=== PATIENT | female | born 1930 | race Caucasian/White ===

== ENCOUNTER 2016-09-07 01:00 | Inpatient (IN) | payer MEDICARE ==
[2016-09-07] VITALS (10 sets, daily range): BP systolic 113–166; BP diastolic 65–98; PULSE 85–112; RESP 16–26; O2SAT 96–98
[~2016-09-07] VITALS: Ht 157.5 cm; Wt 51.6 kg
[~2016-09-07 01:00] MED LIST: ACET-171 PO; ANAG0.5C2 PO; BIOT1CAP3 PO; BRIN8DRO OD; BUTA1CAP16 PO; CALC-140 PO; CARV6.252 AD; CHOL100043 PO; FUR20 PO; LORA0.5T PO; LOSA25TA21 PO; OXYC1TAB24 PO; PAIN TOPICAL; WARF1TAB6 PO
--- NOTE | 2016-09-07 01:19 | ED.REPORT ---
HPI-Allergic Reaction Date of Service Sep 07, 2016 ED Provider: Nursing Notes Stated Complaint: DYSURIA Chief Complaint: Female Abdominal Pain Nursing Notes Reviewed: Yes Allergies: Coded Allergies: Penicillins (Verified Allergy, Unknown, UNKNOWN, 09/07/16) erythromycin base (Verified Allergy, Unknown, UNKNOWN, 09/07/16) ibuprofen (Verified Allergy, Unknown, UNKNOWN, 09/07/16) timolol (Verified Allergy, Unknown, UNKNOWN, 09/07/16) Scheduled Anagrelide (Anagrelide) 0.5 Mg Capsule 1 MG PO BID Biotin (Biotin) 1 Mg Capsule 1 MG PO DAILY Brinzolamide/Brimonid Tart (Simbrinza 1%-0.2% Eye Drops) 8 Ml Drops.susp 2 GTT OD BID Calcium Carbonate/Vitamin D3 (Calcium + Vitamin D Tablet) 1 Each Tablet 1 EACH PO DAILY Carvedilol (Carvedilol) 6.25 Mg Tablet 6.25 MG AD BID Cholecalciferol (Vitamin D3) (Vitamin D) 1,000 Unit Tablet 1,000 UNIT PO DAILY Furosemide (Furosemide) 20 Mg Tab 20 MG PO DAILY Losartan Potassium (Losartan Potassium) 25 Mg Tablet 25 MG PO DAILY Warfarin Sodium (Warfarin Sodium) 1 Mg Tablet 1-5 MG PO DIRECTED Scheduled PRN ([pain ointment]) 1 GM TOPICAL QID PRN PRN For Pain Acetaminophen (Acetaminophen) 500 Mg Tablet 500 MG PO TID PRN PRN For Pain Butalbital/Aspirin/Caff 50-325-40 mg (Fiorinal 50-325-40 mg) 1 Each Capsule 1-2 CAPSULE PO Q6H PRN PRN MIGRAINE Lorazepam (Lorazepam) 0.5 Mg Tablet 0.5 MG PO HS PRN PRN For Insomnia oxyCODONE-Acetaminophen 5-325 mg (oxyCODONE-Acetaminophen 5-325 mg) 1 Each Tablet 1 TAB PO Q6H PRN PRN For Pain General Time Seen by MD: 02:24 Past Medical History Smoking History Former Smoker Physical Exam Initial Vital Signs Vital Signs (First) Date Time Temp Pulse Resp B/P Pulse Ox O2 Delivery O2 Flow Rate FiO2 09/07/16 01:03 37.6 110 26 166/98 96 Room Air Interpretation & Diagnostics Lab Results Interpretation Result Diagram: 09/07/16 0120 09/07/16 0120 Test 09/07/16 01:20 09/07/16 01:31 White Blood Count 10.6th/mm3 (3.8-10.1) Red Blood Count 3.28mil/mm3 (3.90-5.20) Hemoglobin 11.6g/dL (12.0-15.6) Hematocrit 35.1% (35.0-46.0) Mean Corpuscular Volume 107.0fL (81-100) Mean Corpuscular Hemoglobin 35.4pg (27.0-35.0) Mean Corpuscular Hemoglobin Concent 33.0% (32.0-37.0) Red Cell Distribution Width 14.0% (12.3-15.4) Platelet Count 587bil/L (150-400) Neutrophils (%) (Auto) 77.7% (40-74) Lymphocytes (%) (Auto) 10.7% (14-46) Monocytes (%) (Auto) 6.7% (4-12) Eosinophils (%) (Auto) 3.7% (0-5) Basophils (%) (Auto) 0.7% (0-3) Sodium Level 141mEq/L (134-144) Potassium Level 4.5mEq/L (3.5-5.2) Chloride Level 100mEq/L (97-108) Carbon Dioxide Level 26mmol/L (18-29) Blood Urea Nitrogen 28mg/dL (8-27) Creatinine 1.37mg/dL (0.57-1.00) Estimat Glomerular Filtration Rate 52mL/min (>59) Glucose Level 82mg/dL (60-99) Calcium Level 9.6mg/dL (8.5-10.1) Magnesium Level 2.1mg/dL (1.6-2.6) Total Bilirubin 0.4mg/dL (0.0-1.2) Aspartate Amino Transf (AST/SGOT) 30U/L (0-50) Alanine Aminotransferase (ALT/SGPT) 17U/L (0-32) Alkaline Phosphatase 103U/L (25-165) Total Protein 7.1g/dL (6.4-8.4) Albumin 4.4g/dL (3.4-5.0) Lipase 70U/L (13-60) Hold Urine Received (Received) Discharge & Departure Referrals: Fani Johnson MD (PCP) Ugo Morfin MD Sep 07, 2016 01:19
[2016-09-07 01:31] LABS: BASOPHILS % (AUTO) 0.7 % (0-3); EOSINOPHILS % (AUTO) 3.7 % (0-5); MONOCYTES % (AUTO) 6.7 % (4-12); Mean Corpuscular Hemoglobin 35.4 pg (27.0-35.0); NEUTROPHILS % (AUTO) 77.7 % (40-74)
[2016-09-07 01:44] LABS: Platelet Count 587 bil/L (150-400)
[2016-09-07 02:10] LABS: Magnesium 2.1 mg/dL (1.6-2.6)
--- NOTE | 2016-09-07 03:02 | ED.REPORT ---
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 Her symptoms have improved over the last few days but have persisted. She took Motrin with little relief. Associated symptoms include subjective fever of 99F, nausea, constipation, abdominal discomfort and flank pain. Patient also reports experiencing bilateral foot pain similar to her osteoarthritis pain. She denies any episodes of emesis. Nursing Notes Stated Complaint: DYSURIA Chief Complaint: Female Abdominal Pain Nursing Notes Reviewed: Yes Allergies: Coded Allergies: Penicillins (Verified Allergy, Unknown, UNKNOWN, 09/07/16) erythromycin base (Verified Allergy, Unknown, UNKNOWN, 09/07/16) ibuprofen (Verified Allergy, Unknown, UNKNOWN, 09/07/16) timolol (Verified Allergy, Unknown, UNKNOWN, 09/07/16) Scheduled Anagrelide (Anagrelide) 0.5 Mg Capsule 1 MG PO BID Biotin (Biotin) 1 Mg Capsule 1 MG PO DAILY Brinzolamide/Brimonid Tart (Simbrinza 1%-0.2% Eye Drops) 8 Ml Drops.susp 2 GTT OD BID Calcium Carbonate/Vitamin D3 (Calcium + Vitamin D Tablet) 1 Each Tablet 1 EACH PO DAILY Carvedilol (Carvedilol) 6.25 Mg Tablet 6.25 MG AD BID Cholecalciferol (Vitamin D3) (Vitamin D) 1,000 Unit Tablet 1,000 UNIT PO DAILY Furosemide (Furosemide) 20 Mg Tab 20 MG PO DAILY Losartan Potassium (Losartan Potassium) 25 Mg Tablet 25 MG PO DAILY Warfarin Sodium (Warfarin Sodium) 1 Mg Tablet 1-5 MG PO DIRECTED Scheduled PRN ([pain ointment]) 1 GM TOPICAL QID PRN PRN For Pain Acetaminophen (Acetaminophen) 500 Mg Tablet 500 MG PO TID PRN PRN For Pain Butalbital/Aspirin/Caff 50-325-40 mg (Fiorinal 50-325-40 mg) 1 Each Capsule 1-2 CAPSULE PO Q6H PRN PRN MIGRAINE Lorazepam (Lorazepam) 0.5 Mg Tablet 0.5 MG PO HS PRN PRN For Insomnia oxyCODONE-Acetaminophen 5-325 mg (oxyCODONE-Acetaminophen 5-325 mg) 1 Each Tablet 1 TAB PO Q6H PRN PRN For Pain General Time Seen by MD: 02:24 Chief Complaint Dysuria Hx Obtained From: Patient Arrived By: Ambulance Sudden in Onset?: No Symptom Duration: Since onset Location: : Flank left: Flank right Quality: Painful Radiation: Does not radiate Severity: Current: No pain currently Severity: Maximum: Mild Associated with: Reports: Fever (subjective), Nausea, UTI symptoms... (Dysuria) , Denies: Vomiting Pertinent Negative: Pt denies other symptoms Recent Healthcare: No recent doctor visit, No recent hospitalization Past Medical History Past Medical History Osteoarthritis Central thrombocytosis Atrial fibrillation CHF Past Surgical History None reported Smoking History Former Smoker Social History Other Social History: Good social support, Local resident Ambulatory Status Independent Review of Systems Constitutional: Reports: Fever (Subjective 99F) GI: Reports: Abdominal pain, Constipation, Nausea, Denies: Vomiting Female: Reports: Dysuria, Flank pain Complete sys rev & neg: except as marked. Physical Exam Initial Vital Signs Vital Signs (First) Date Time Temp Pulse Resp B/P Pulse Ox O2 Delivery O2 Flow Rate FiO2 09/07/16 01:03 37.6 110 26 166/98 96 Room Air 09/07/16 03:14 2 Initial VS: Reviewed Head / Eyes: Atraumatic, Normocephalic, PERRL Neck: Supple, Non-tender, Full range of motion Abdomen / GI: No rebound Extremities: Vascular intact, Neuro intact, No swelling, No tenderness Skin: Warm, Dry, No cyanosis Neurologic: Alert, Oriented, Nonfocal Psychiatric: Mood/affect normal, Behavior normal, Normal thought content Female Genitourinary: Exam deferred General/Constitutional: Awake, Alert, No acute distress Respiratory / Chest: Atraumatic, Breath sounds NL, Breath sounds = bilat, No respiratory distress Cardiovascular: Heart rate NL, Regular rhythm, Heart sounds NL Abdomen: Atraumatic, Soft Tenderness/Guarding/Rebound: Positive: Tender RLQ..., Tender RUQ... Interpretation & Diagnostics Lab Results Interpretation Result Diagram: 09/07/16 0120 09/07/16 0120 Test 09/07/16 01:20 09/07/16 01:31 09/07/16 05:22 White Blood Count 10.6th/mm3 (3.8-10.1) Red Blood Count 3.28mil/mm3 (3.90-5.20) Hemoglobin 11.6g/dL (12.0-15.6) Hematocrit 35.1% (35.0-46.0) Mean Corpuscular Volume 107.0fL (81-100) Mean Corpuscular Hemoglobin 35.4pg (27.0-35.0) Mean Corpuscular Hemoglobin Concent 33.0% (32.0-37.0) Red Cell Distribution Width 14.0% (12.3-15.4) Platelet Count 587bil/L (150-400) Neutrophils (%) (Auto) 77.7% (40-74) Lymphocytes (%) (Auto) 10.7% (14-46) Monocytes (%) (Auto) 6.7% (4-12) Eosinophils (%) (Auto) 3.7% (0-5) Basophils (%) (Auto) 0.7% (0-3) Sodium Level 141mEq/L (134-144) Potassium Level 4.5mEq/L (3.5-5.2) Chloride Level 100mEq/L (97-108) Carbon Dioxide Level 26mmol/L (18-29) Blood Urea Nitrogen 28mg/dL (8-27) Creatinine 1.37mg/dL (0.57-1.00) Estimat Glomerular Filtration Rate 52mL/min (>59) Glucose Level 82mg/dL (60-99) Calcium Level 9.6mg/dL (8.5-10.1) Magnesium Level 2.1mg/dL (1.6-2.6) Total Bilirubin 0.4mg/dL (0.0-1.2) Aspartate Amino Transf (AST/SGOT) 30U/L (0-50) Alanine Aminotransferase (ALT/SGPT) 17U/L (0-32) Alkaline Phosphatase 103U/L (25-165) Total Protein 7.1g/dL (6.4-8.4) Albumin 4.4g/dL (3.4-5.0) Lipase 70U/L (13-60) Urine Color Straw (YELLOW) Urine Appearance Hazy (CLEAR,HAZY) Urine pH 8.0 (5.0-8.0) Urine Specific [place] 1.010 (1.003-1.035) Urine Protein 30mg/dL (NEG,TRACE) Urine Glucose (UA) Negativemg/dL (NEGATIVE) Urine Ketones Negativemg/dL (NEGATIVE) Urine Occult Blood Trace (NEGATIVE) Urine Nitrite Negative (NEGATIVE) Urine Bilirubin Negative (NEGATIVE) Urine Urobilinogen Normalmg/dL (NORMAL) Urine Leukocyte Esterase Small (NEGATIVE) Urine RBC 3-10/hpf (0-2) Urine WBC >50/hpf (0-5) Urine Epithelial Cells Occasional/hpf (NONE-MOD) Urine Crystals None seen (NONE SEEN) Urine Bacteria Few/hpf (NONE-FEW) Urine Hyaline Casts None/lpf (NONE) Urine Granular Casts None seen (NONE SEEN) Urine Waxy Casts None seen (NONE SEEN) Urine Red Blood Cell Casts None seen (NONE SEEN) Urine White Blood Cell Casts None seen (NONE SEEN) Urine Mucus None seen (None Seen) Urine Trichomonas None seen (NONE SEEN) Urine Yeast Nn (NONE SEEN) Urine Culture Reflexed Indicated Hold Urine Received (Received) Lactic Acid Level 0.6mmol/L (0.4-2.0) Lab values outside NL range: no clinical significance. Lab Results Interpretation: Greater than 50 white cells per high-power field, a urine culture pending. Re-Eval/Medical Decision Med Decision/Clinical Course 86-year-old female who has symptoms of urinary tract infection. She has great through than 50 white cells per high-power field, culture pending. Her white count is mildly elevated and there is no evidence of sepsis. She lives alone with some walk-in help but feels that she would be unable to care for self this time. She was given hydration and IV Rocephin and will be admitted to the hospitalist service. Re-Evaluation/Progress : Time of Eval: 05:32 Patient Status: Condition improved Re-Evaluation/Progress Note: Pain has improved but fatigue is still present. She is given the option to admi and repeats that she would like to rest. All of the pt's questions about her diagnosis are addressed. Consultation : Referral / Consult Name: Paresh Chapman MD Consulted With: Hospitalist Call Returned at: 07:50 Movie Operator: Will see patient, Agrees with eval, Agrees with plan, Accepts admit Counseled Regarding: Diagnosis, Lab results, Need for admission Discharge & Departure Impression: Primary Impression: Pyelonephritis Disposition: ADMITTED TO HOSPITAL Discharge Condition All VS Reviewed: Yes Condition: Stable Referrals: Fani Johnson MD (PCP) Ruth Ann Attestation Portions of this note were transcribed by Edna Vega. I, Dr. Morfin personally performed the history, physical exam and medical decision-making; I reviewed and confirmed the accuracy of the information in the transcribed note. Signed by: Ruth Ann Breen, 09/07/16 0752. copies to: Fani Johnson MD, Howard L MD Sep 07, 2016 03:01 EDNA VEGA Sep 07, 2016 03:10
[2016-09-07 03:14] LABS: APPEARANCE,URINE HAZY (CLEAR,HAZY); COLOR,URINE STRAW (YELLOW); OCCULT BLOOD,URINE TRACE (NEGATIVE); UROBILINOGEN,URINE NORMAL (NORMAL); YEAST,URINE NN (NONE SEEN)
[2016-09-07] MEDS ORDERED: 0.9% Sodium Chloride 500 ML IV ONE (03:15)
[2016-09-07] MEDS ORDERED: Ondansetron 2 mg/mL 2 mL Inj IV PRN (03:15)
[2016-09-07] MEDS ORDERED: cefTRIAXone Inj 2,000 MG in Dextrose 5% Minibag Plus 50 ML IV ONE (03:15)
[2016-09-07] MEDS ORDERED: HYDROmorphone 0.5 mg/0.5 mL iSecure Syringe IVPUSH ONE (04:10)
[2016-09-07] MEDS ORDERED: 0.9% Sodium Chloride 1,000 ML IV SCH (07:54)
[2016-09-07] MEDS ORDERED: Alum-Mag Hydrox-Simeth 30 mL Suspension PO PRN (07:55)
[2016-09-07] MEDS ORDERED: Ondansetron 2 mg/mL 2 mL Inj IVPUSH PRN (07:55)
[2016-09-07] MEDS ORDERED: Polyethylene Glycol (PEG) 17 Gm Powder PO PRN (07:55)
[2016-09-07] MEDS ORDERED: HYDROcodone-APAP 5-325 mg Tablet PO PRN (07:55)
[2016-09-07] MEDS ORDERED: Aspirin-Caffeine-Butalbital Tablet PO PRN (08:05)
[2016-09-07] MEDS ORDERED: oxyCODONE-Acetamin 5-325 mg Tablet PO PRN (08:05)
[2016-09-07] MEDS ORDERED: LORazepam 0.5 mg Tablet PO PRN (08:05)
[2016-09-07] MEDS ORDERED: PAIN TOPICAL PRN (08:05)
--- NOTE | 2016-09-07 08:07 | PCM.HPMED ---
Subjective Date of Service Sep 07, 2016 Primary Provider: Admitting Physician: Primary Care Physician: Fani Johnson MD Attending Physician: Chief Complaint: Dysuria, malaise History of Present Illness: 86-year-old female who was started on anagrelide about 6 weeks ago for her essential thrombocytosis and feels like she has been doing worse since then. He looked at the side effect profile and felt like she was experiencing many of them including shortness of breath arrhythmias CHF and blurry vision. She presents the emergency room 09/07 with a 3-4 day history of dysuria, she was not feeling well for the last couple days but she woke up with shaking chill and low -grade fever. She has been self-management managing with fluids and baking soda for the dysuria. She has not been eating well, but she was able to go play bridge yesterday. Review of Systems: Gen.: No fevers chills ++weight loss 17 pounds over last year Eyes: no visual disturbances or ++blurring vision HEENT: No nose/throat drainage, no pain in ears or throat, no hearing loss Lymph: No lymph nodes noted Cardiac: No chest pain, orthopnea, PND, palpitations , pedal edema or ++dyspnea on exertion Pulmonary: no cough, wheezing or bringing up of sputum ++dyspnea GI: No anorexia nausea vomiting blood or black in the stool : no hematuria urinary frequency or decrease in urine output +dysuria Musculoskeletal: Joint swelling no joint pain no new muscle aches or back pain Neuro: No syncope, seizures no loss of consciousness no new focal weakness, numbness or tingling Psychiatric: New new anxiety insomnia or depression Endocrine: No new heat or cold intolerances polyuria or polydipsia Hematology: No lymphadenopathy or easy bleeding or bruising noted skin: No new rashes, stasis dermatitis Allergies Coded Allergies: Penicillins (Verified Allergy, Unknown, UNKNOWN, 09/07/16) erythromycin base (Verified Allergy, Unknown, UNKNOWN, 09/07/16) ibuprofen (Verified Allergy, Unknown, UNKNOWN, 09/07/16) timolol (Verified Allergy, Unknown, UNKNOWN, 09/07/16) Home Medications Anagrelide (Anagrelide) 0.5 Mg Capsule 1 MG PO BID Biotin (Biotin) 1 Mg Capsule 1 MG PO DAILY Brinzolamide/Brimonid Tart (Simbrinza 1%-0.2% Eye Drops) 8 Ml Drops.susp 2 GTT OD BID Calcium Carbonate/Vitamin D3 (Calcium + Vitamin D Tablet) 1 Each Tablet 1 EACH PO DAILY Carvedilol (Carvedilol) 6.25 Mg Tablet 6.25 MG AD BID Cholecalciferol (Vitamin D3) (Vitamin D) 1,000 Unit Tablet 1,000 UNIT PO DAILY Furosemide (Furosemide) 20 Mg Tab 20 MG PO DAILY Losartan Potassium (Losartan Potassium) 25 Mg Tablet 25 MG PO DAILY Warfarin Sodium (Warfarin Sodium) 1 Mg Tablet 1-5 MG PO DIRECTED Scheduled PRN ([pain ointment]) 1 GM TOPICAL QID PRN PRN For Pain Acetaminophen (Acetaminophen) 500 Mg Tablet 500 MG PO TID PRN PRN For Pain Butalbital/Aspirin/Caff 50-325-40 mg (Fiorinal 50-325-40 mg) 1 Each Capsule 1-2 CAPSULE PO Q6H PRN PRN MIGRAINE Lorazepam (Lorazepam) 0.5 Mg Tablet 0.5 MG PO HS PRN PRN For Insomnia oxyCODONE-Acetaminophen 5-325 mg (oxyCODONE-Acetaminophen 5-325 mg) 1 Each Tablet 1 TAB PO Q6H PRN PRN For Pain PMH 1. Essential thrombocytosis. 2. Glaucoma. 3. Atrial fibrillation. PAST SURGICAL HISTORY: 1. section x2. 2. Hysterectomy. 3. Right fourth finger fracture repair. SOCIAL HISTORY: The patient does not smoke. She has one or two drinks a week. There is no drug use. She is independent and is quite active and able to take care of herself. She has a couple of close friends who are at the bedside. Her Power of [employer] Vice President For Medical Decisions is her granddaughter, Samia Gonzalez. FAMILY HISTORY: Negative, per the patient. Social History Hx Alcohol Use: Yes Hx Substance Use: No Smoking Status: Former Smoker Exam Vital Signs Vital Sign - Last Date Time Temp Pulse Resp B/P Pulse Ox O2 Delivery O2 Flow Rate FiO2 09/07/16 06:45 37.4 111 20 145/89 97 Nasal Cannula 2 Intake and Output 09/06/16 09/06/16 09/07/16 Cumulative From/Thru 15:00 23:00 07:00 09/07/16 01:03 - 09/07/16 03:45 Intake Total 500 ml 500 ml Balance 500 ml 500 ml Intake IV Total 500 ml 500 ml Exam Gen.- A+ O 3 no apparent distress. Thin elderly female lying in bed hard of hearing Eyes- open conjunctiva clear, pupils equal nonicteric Mouth- oral mucosa moist, no exudate ENT- ears normal, nose normal Neck- supple/trach midline CVS- RRR no murmur or gallop Lungs CTA GI- NABS/NT soft Musc- moving 4 no obvious deformity Neuro- cranial nerves II through XII intact to gross examination, nonfocal Skin- warm and dry, no rashes/lesions/wounds noted Psych- pleasant and appropriate, Lab and Diagnostics Result Diagram: 09/07/16 0120 09/07/16 0120 X-Rays, CTs and MRIs X-RAY CHEST ONE VIEW, PORT: Awilda Mathews MD, PhD on 09/07/2016 at 9:22 IMPRESSION: No acute cardiopulmonary disease process. Dictated by: Awilda Mathews MD, PhD on 09/07/2016 at 9:22 CXR [facility]: Mandy Douglas MD 08/08/2016 12:52 PM, Cardiomegaly and slight pulmonary edema. Electronically signed by: Mandy Douglas MD 08/08/2016 12:52 PM, [place] Time. Cardiac Echo Impressions [place] echo 08/15/16: John Marquez Conclusions Mild LVH with mild global LV dysfunction EF 50%. Severe biatrial dilation. Mild mitral regurgitation. Mild to moderate aortic regurgitation. Moderate tricuspid regurgitation. Mild pulmonary hypertension. Echocardiogram Report: Alan Ortiz on 04/28/2012 11:29 The left ventricle is normal in size, wall thickness, and systolic function without any focal wall motion abnormalities. The ejection fraction is estimated to be 55-60%. The right ventricle is normal size. Right ventricular systolic function is borderline reduced. Right ventricular systolic pressure estimate is 35-40 mmHg. There is marked biatrial enlargement. 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 The atrial septal defect is small. There is mild to moderate aortic regurgitation. There is moderate tricuspid regurgitation. The ascending aorta is mildly enlarged. Compared to the prior echo report on 11/05/2010, there is no significant change. Reading Physician:AM Assessment & Plan 86-year-old female admitted 09/07 ostensibly for UTI/sepsis. Possibly she does have a UTI although the UA does not look terrible, she almost certainly is having some cardiac arrhythmias and perhaps worsening CHF all of her problems started about 6 weeks ago when she started on analegride according to her. UTI-Rocephin 09/07 await culture and sensitivities GABI- Cr .99 08/08 [facility] lab. Patient renal function diminished but BNP elevated today therefore I am not giving IV fluids but I will be careful with diuretics as well. Acute/chronic diastolic/systolic CHF- -BNP elevated however CXR does not show CHF. Patient not symptomatic. -Stopping furosemide 09/07 Afib-Will monitor on telemetry, warfarin to be managed by pharmacy she is subtherapeutic today. Essential thrombocytosis-continue analegride for now but probably need to discuss with heme/oncology and/or Dr. Jimenez who ever is available possibly discontinuing. Prophylaxis-DVT with SCD/enoxaparin till INR therapeutic. GI not indicated Disposition-full code from home Paresh Chapman MD Sep 07, 2016 08:07
[2016-09-07] MEDS ORDERED: [UNRECOGNIZED DRUG - OTHER] PO SCH (08:30)
[2016-09-07] MEDS: SIMBRINZA BOTH_EYES SCH ×2 (08:30→21:26)
[2016-09-07] MEDS: OPTH BOTH_EYES SCH ×2 (08:30→21:26)
[2016-09-07] MEDS ORDERED: CALCIUM CARBONATE PO SCH (08:30)
[2016-09-07] MEDS ORDERED: VITAMIN D3 PO SCH (08:30)
[2016-09-07] MEDS ORDERED: Butalbital-Acet-Caffeine Tablet PO PRN (08:45)
--- NOTE | 2016-09-07 09:24 | DRSVH ---
PROCEDURE: X-RAY CHEST ONE VIEW, PORTABLE ([id number]) INDICATIONS: malaise TECHNIQUE: One view of the chest was acquired. COMPARISON: None. FINDINGS: Surgical changes and devices: None. Lungs and pleura: No pleural effusions or pneumothorax. Lungs are clear. Mediastinum: Mediastinal contours appear normal. Heart size is enlarged, but stable compared to iman or examination. Bones and chest wall: No suspicious bony lesions. Overlying soft tissues appear unremarkable. IMPRESSION: No acute cardiopulmonary disease process. Dictated by: Awilda Mathews MD, PhD on 09/07/2016 at 9:22 Approved by: Awilda Mathews MD, PhD on 09/07/2016 at 9:23
[2016-09-07] MEDS ORDERED: CALC1TAB4 PO (09:26)
[2016-09-07] MEDS ORDERED: SUMA50TA31 PO (09:26)
[2016-09-07] MEDS ORDERED: VIT1TABL83 PO (09:26)
[2016-09-07] MEDS ORDERED: DICL100G8 TOPICAL (09:26)
[2016-09-07 09:33] LABS: INR 1.88 ratio
[2016-09-07 10:12] LABS: TROPONIN T 0.011 ug/L (0.0-0.011)
[2016-09-07] MEDS: cefTRIAXone Inj 1,000 MG in Dextrose 5% Minibag Plus 50 ML IV SCH (10:28)
--- NOTE | 2016-09-07 11:27 | PCM.PHAPRO ---
Progress Dysuria, malaise Warfarin Dosing Indication AFib Home dose To be discovered Date 3-Norman 4-Norman 5-Norman 6-Norman 7-Norman 8-Norman 9-Norman 10-Norman INR 1.88 INR change Warf Dose 5MG TODAY a/ Patient follows chart/calendar for daily dose. She is certain of today's dose (5mg). Daughter will bring in dosing chart. p/ Give 5mg today and follow INR Raghav Carrillo Pharm D Sep 07, 2016 11:27
--- NOTE | 2016-09-07 15:43 | NUR ---
Evaluation completed. Please go to "Notes" then click on "Assessments and Notes" (bottom left corner of screen). Then select appropriate discipline tab on top of screen.
--- NOTE | 2016-09-07 16:25 | NUR ---
Social Work Note: Initial Assessment Data& Assessment: EMR reviewed. SW met with pt and pt friend/neighbor K[place] at bedside to discuss discharge planning, SW role explained. SW phone number provided on [place]. Kathrin Medrano is a 86 year old female admitted on 09/07/2016 for UTI. Pt has [facility] [place] Medic insurance coverage and sees Fani Johnson MD for primary care. Pt lives alone in [place] in a one story home with one step to enter her home. Pt drives. Pt does not use any DME at baseline. Pt currently wearing oxygen, but does not require oxygen at baseline. Pt does not have HH or SNF hx. Pt does not have LTC insurance or VA benefits. Pt does have many supportive neighbors/friends at home and one of them will transport her home when medically ready. Pt confirmed she has DPOA/Advance Directive paperwork completed at home. SW requested a copy when possible. PT evaluation complete, PT recommending pt return home when medically ready with no additional PT needs. Pt and pt friend deny any other needs at this time. SW to continue to follow if any needs arise. Plan: Anticipated discharge home via POV when medically ready. Pt and pt friend deny any other needs at this time. SW to continue to follow if any needs arise. BUBBA Rico Addendum: 09/07/16 at 1630 by RISHI BERNARD Amended: Links added.
[2016-09-08 00:17] VITALS: BP 108/70; PULSE 87; RESP 18; O2SAT 97
[2016-09-08 04:33] VITALS: BP 145/92; PULSE 95; RESP 18; O2SAT 98
--- NOTE | 2016-09-08 05:31 | NUR ---
Noc activity Pt denies chest pain, sob, n/v or abd discomfort. Has been ambulating around hallways. HS meds administered as scheduled. VSS and has been afebrile overnight. Reports of pain, all over legs whenever pt ambulates. Controlled with tylenol PRN. Hourly rounding in effect and pt has slept most of the night.
[2016-09-08 06:14] VITALS: PULSE 95
[2016-09-08 07:33] LABS: INR 1.79 ratio
[2016-09-08] MEDS ORDERED: ANAGRELIDE 1 MG PO SCH (08:30)
[2016-09-08 09:01] VITALS: BP 108/65; PULSE 105; RESP 18; O2SAT 96
[2016-09-08] MEDS: SIMBRINZA BOTH_EYES SCH ×2 (09:16→21:10)
[2016-09-08] MEDS: OPTH BOTH_EYES SCH ×2 (09:16→21:10)
[2016-09-08] MEDS: cefTRIAXone Inj 1,000 MG in Dextrose 5% Minibag Plus 50 ML IV SCH (09:17)
[2016-09-08] MEDS: ANAGRELIDE 1 MG PO SCH ×2 (10:20→21:11)
--- NOTE | 2016-09-08 10:52 | NUR ---
Social Work-readiness for discharge: data:EMR reviewed. Pt is a on day 1 of hospitalization for UTI per H&P. Pt is not medically stable anticipate later today or tomorrow. PT has seen pt and cleared pt for home no needs. Pt's family or friends to provide transport home at discharge. No anticipated discharge needs. SW will continue to follow if needs arise. Assessment:Pt who is independent at baseline. Plan:Pt to discharge home when medically stable via POV. No anticipated discharge needs. SW will continue to follow if needs arise. Tiki Christensen MSW
[2016-09-08 13:53] VITALS: BP 142/90; PULSE 100; RESP 16; O2SAT 97
--- NOTE | 2016-09-08 18:17 | NUR ---
Activity Patient walked around the floor once today. Patient stated she overdid it a little bit and had to take a nap for couple of hours. Pleasant and cooperative with care.
--- NOTE | 2016-09-08 18:53 | PCM.PNMED ---
Subjective Date of Service Sep 08, 2016 Subjective Patient still having a little shortness of breath and very worried about decreased breath sounds in her lungs. No chest pain, no nausea or vomiting. Dysuria has resolved. Exam Vital Signs Vital Sign - Last Date Time Temp Pulse Resp B/P Pulse Ox O2 Delivery O2 Flow Rate FiO2 09/08/16 13:53 36.8 100 16 142/90 97 Room Air 09/07/16 13:44 1.00 Intake and Output 09/07/16 09/07/16 09/08/16 Cumulative From/Thru 15:00 23:00 07:00 09/07/16 01:03 - 09/08/16 05:31 Intake Total 1136 ml 600 ml 2236 ml Output Total 850 ml 1400 ml 2250 ml Balance 286 ml -800 ml -14 ml Intake Oral 1136 ml 600 ml 1736 ml IV Total 500 ml Output Urine Total 850 ml 1400 ml 2250 ml # Bowel Movements 0 0 Exam Gen.- A+ O 3 no apparent distress. Thin elderly female lying in bed hard of hearing Eyes- open conjunctiva clear, pupils equal nonicteric ENT- ears normal, nose normal Neck- supple/trach midline CVS- RRR no murmur or gallop Lungs CTA GI- NABS/NT soft Musc- moving 4 no obvious deformity Neuro- cranial nerves II through XII intact to gross examination, nonfocal Skin- warm and dry, no rashes/lesions/wounds noted Psych- pleasant and appropriate, Lab and Diagnostics Result Diagram: 09/07/16 0120 09/07/16 0120 X-Rays, CTs and MRIs X-RAY CHEST ONE VIEW, PORT: Awilda Mathews MD, PhD on 09/07/2016 at 9:22 IMPRESSION: No acute cardiopulmonary disease process. Dictated by: Awilda Mathews MD, PhD on 09/07/2016 at 9:22 CXR [facility]: Mandy Douglas MD 08/08/2016 12:52 PM, Cardiomegaly and slight pulmonary edema. Electronically signed by: Mandy Douglas MD 08/08/2016 12:52 PM, [place] Time. Cardiac Echo Impressions [place] echo 08/15/16: John Marquez Conclusions Mild LVH with mild global LV dysfunction EF 50%. Severe biatrial dilation. Mild mitral regurgitation. Mild to moderate aortic regurgitation. Moderate tricuspid regurgitation. Mild pulmonary hypertension. Echocardiogram Report: Alan Lopezo on 04/28/2012 11:29 The left ventricle is normal in size, wall thickness, and systolic function without any focal wall motion abnormalities. The ejection fraction is estimated to be 55-60%. The right ventricle is normal size. Right ventricular systolic function is borderline reduced. Right ventricular systolic pressure estimate is 35-40 mmHg. There is marked biatrial enlargement. 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 The atrial septal defect is small. There is mild to moderate aortic regurgitation. There is moderate tricuspid regurgitation. The ascending aorta is mildly enlarged. Compared to the prior echo report on 11/05/2010, there is no significant change. Reading Physician:EVELYN Assessment & Plan 86-year-old female admitted 09/07 ostensibly for UTI/sepsis. Possibly she does have a UTI although the UA does not look terrible, she almost certainly is having some cardiac arrhythmias and perhaps worsening CHF all of her problems started about 6 weeks ago when she started on analegride according to her. 09/08 patient medically stable, continuing IV antibiotics holding off on aggressive diuresis given acute renal failure will recheck labs in the a.m. and moved to oral antibiotics for a total of 7 days once sensitivities are back. UTI-Rocephin 09/07 await culture and sensitivities so for greater than 100,000 Escherichia coli growing GABI- Cr .99 08/08 [facility] lab. Patient renal function diminished but BNP elevated today therefore I am not giving IV fluids but I will be careful with diuretics as well. Acute/chronic diastolic/systolic CHF- -BNP elevated however CXR does not show CHF. Patient not symptomatic. -Stopping furosemide 09/07 Afib-Will monitor on telemetry, warfarin to be managed by pharmacy she is subtherapeutic today. Essential thrombocytosis-continue analegride for now but probably need to discuss with heme/oncology and/or Dr. Jimenez who ever is available possibly discontinuing. Prophylaxis-DVT with SCD/enoxaparin till INR therapeutic. GI not indicated Disposition-full code from home Paresh Chapman MD Sep 08, 2016 18:53
[2016-09-08 20:30] VITALS: BP 152/106; PULSE 104; RESP 17; O2SAT 96
[2016-09-09 05:47] VITALS: BP 123/82; PULSE 87; RESP 16; O2SAT 97
--- NOTE | 2016-09-09 05:52 | NUR ---
Pain Pt reports of having pain on her legs and joints. PRN tylenol administered. VSS nad has nbeen afebrile. Complains of difficulty catching sleep.Intentional hourly rounding done and pt has slept most of time.
[2016-09-09 07:09] LABS: BASOPHILS % (AUTO) 0.7 % (0-3); EOSINOPHILS % (AUTO) 5.5 % (0-5); MONOCYTES % (AUTO) 16.1 % (4-12); Mean Corpuscular Hemoglobin 34.8 pg (27.0-35.0); Mean Corpuscular Volume 107.8 fL (81-100); NEUTROPHILS % (AUTO) 60.2 % (40-74); Platelet Count 348 bil/L (150-400)
[2016-09-09 07:13] LABS: INR 1.97 ratio
[2016-09-09] MEDS: ANAGRELIDE 1 MG PO SCH (09:24)
[2016-09-09] MEDS: cefTRIAXone Inj 1,000 MG in Dextrose 5% Minibag Plus 50 ML IV SCH (09:24)
[2016-09-09] MEDS: SIMBRINZA BOTH_EYES SCH (09:24)
[2016-09-09] MEDS: OPTH BOTH_EYES SCH (09:24)
--- NOTE | 2016-09-09 11:23 | PCM.PHAPRO ---
Progress Dysuria, malaise 3-Norman 4-Norman 5-Norman 1.88 1.79 1.97 -0.09 0.18 5MG TODAY 6 MG 5 Aldo Crow Pharm.D Sep 09, 2016 11:23
--- NOTE | 2016-09-09 12:53 | PCM.DIMED ---
Discharge Instructions Date of Service Sep 09, 2016 Dates of Hospitalization Sep 07, 2016 at 08:06 Discharge Diagnosis Discharge Diagnosis UTI, renal insufficiency, anemia, CHF Diet Discharge Diet: Heart Healthy Call your provider Call your provider for: Shortness of breath Patient Instructions Patient Instructions Stop analegride, make sure you have a follow-up appointment with Dr. Jimenez, keep her cardiology appointment in primary care provider appointments Follow-up plan Schedule follow-up with Tony POTTS, make a log of weight, breathing, edema and other symptomsto bring to her appointments with the Follow-up Provider: Fani Johnson MD Follow-up with PCP in: Other (5-10 days interspersed with other appointments) Provider: Carlos Jimenez MD Follow-up in: Other (call for next available) Paresh Chapman MD Sep 09, 2016 12:53
[2016-09-09] MEDS ORDERED: CEPH-512 PO (12:56)
[2016-09-09] MEDS ORDERED: LACT1CAP86 PO (12:56)
[2016-09-09] MEDS ORDERED: HYDR500C2 PO (13:03)
[2016-09-09 14:00] VITALS: BP 133/82; PULSE 95; RESP 20; O2SAT 97
--- NOTE | 2016-09-09 14:29 | NUR ---
Social Work-discharge: Data:EMR Reviewed. Pt is on day 2 of hospitalization for UTI per H&P. Pt is medically stable for discharge. placed order for HH and JALEN. SW met with pt to discuss HH, pt declining stating she will not need these services at home. SW discussed caregivers, pt states her granddaughter assists her at home and she has lots of family and friends in the area. PT has cleared pt for home no needs. No discharge needs identified. All updated and agreeable to plan. Assessment:Pt who is independent at baseline. Plan:Pt to discharge home today via POV. Pt declining HH and caregivers. PT has cleared pt for home no needs. No discharge needs identified. All updated and agreeable to plan. BUBBA Arboleda
--- NOTE | 2016-09-09 17:45 | NUR ---
Discharge Patient departed unit via wheelchair, accompanied by staff and friend. Patient alert and oriented at time of discharge. Patient reporting feeling more short of breath today than yesterday. Oxygen saturation 96-97% on RA. Patient is visibly short of breath when walking or talking. Hospitalist notified and patient given one dose of po lazix per order. Patient denied any other discomfort, pain or needs. Patient emotionally labile during discharge teaching, due to concerns of understanding how to take her medications, and who to have get her prescriptions filled. Discharge instructions/medications reviewed with patient prior to discharge. All questions addressed. Patient belongings, discharge instructions and medications in hand.
--- NOTE | 2016-09-09 19:07 | PCM.DC.MED ---
Discharge Summary Date of Service Sep 09, 2016 Dates of Hospitalization Date of Hospital Admission Sep 07, 2016 at 08:06 Date of Discharge: Sep 09, 2016 Providers: Admitting Physician: Paresh Chapman MD Primary Care Physician: Fani Johnson MD Attending Physician: Paresh Chapman MD Diagnosis at Time of Discharge Diagnosis at Time of Discharge UTI, renal insufficiency, anemia, CHF Consultations None Procedures XRay, CTs & MRIs X-RAY CHEST ONE VIEW, PORT: Awilda Mathews MD, PhD on 09/07/2016 at 9:22 IMPRESSION: No acute cardiopulmonary disease process. Dictated by: Awilda Mathews MD, PhD on 09/07/2016 at 9:22 CXR [facility]: Mandy Douglas MD 08/08/2016 12:52 PM, Cardiomegaly and slight pulmonary edema. Electronically signed by: Mandy Douglas MD 08/08/2016 12:52 PM, [place] Time. Cardiac Echo Impression [place] echo 08/15/16: John Marquez Conclusions Mild LVH with mild global LV dysfunction EF 50%. Severe biatrial dilation. Mild mitral regurgitation. Mild to moderate aortic regurgitation. Moderate tricuspid regurgitation. Mild pulmonary hypertension. Echocardiogram Report: Alan Ortiz on 04/28/2012 11:29 The left ventricle is normal in size, wall thickness, and systolic function without any focal wall motion abnormalities. The ejection fraction is estimated to be 55-60%. The right ventricle is normal size. Right ventricular systolic function is borderline reduced. Right ventricular systolic pressure estimate is 35-40 mmHg. There is marked biatrial enlargement. 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 The atrial septal defect is small. There is mild to moderate aortic regurgitation. There is moderate tricuspid regurgitation. The ascending aorta is mildly enlarged. Compared to the prior echo report on 11/05/2010, there is no significant change. Reading Physician:EVELYN Brief History 86-year-old female who was started on anagrelide about 6 weeks ago for her essential thrombocytosis and feels like she has been doing worse since then. He looked at the side effect profile and felt like she was experiencing many of them including shortness of breath arrhythmias CHF and blurry vision. She presents the emergency room 09/07 with a 3-4 day history of dysuria, she was not feeling well for the last couple days but she woke up with shaking chill and low -grade fever. She has been self-management managing with fluids and baking soda for the dysuria. She has not been eating well, but she was able to go play bridge yesterday. Hospital Course 86-year-old female admitted 09/07 ostensibly for UTI/sepsis. Possibly she does have a UTI although the UA does not look terrible, she almost certainly is having some cardiac arrhythmias and perhaps worsening CHF all of her problems started about 6 weeks ago when she started on analegride according to her. 09/08 patient medically stable, continuing IV antibiotics holding off on aggressive diuresis given acute renal failure will recheck labs in the a.m. and moved to oral antibiotics for a total of 7 days once sensitivities are back. 09/09 patient has remained medically stable, her creatinine is normalized, hemoglobin dropped this little bit and her urine sensitivities are back it is Escherichia coli sensitive to everything decide Bactrim. She is ambulating up and down the hallway but because of anxiety from the patient and her family because she is going back to independent living and was almost reluctant to discharge today social work was consulted re home health which the patient declined. Prescriptions were given for lactobacillus for next month, Keflex for 7 days , and hydroxyurea 500 mg daily. patient to stop analegride and resume low-dose furosemide on discharge #UTI-Rocephin 09/07 await culture and sensitivities so for greater than 100,000 Escherichia coli growing. patient discharged with 7 more days of Keflex 500 4 times a day #GABI- Cr .99 08/08 [facility] lab. Patient renal function diminished but BNP elevated today therefore I am not giving IV fluids but I will be careful with diuretics as well. -ResolvedCR 0.98 09/09 -Resuming low-dose furosemide that may have been more than she could benefit which is why BMP is ordered before the end of the week 09/13 preferably. #Anemia- Hg 9.8 09/09 #Acute/chronic diastolic/systolic CHF- -BNP elevated however CXR does not show CHF. Patient possibly minimally symptomatic -Stopping furosemide 09/07, resumed on discharge -Sundar's side effect of analegride stopped 09/[address] Tony Nair #Afib-Will monitor on telemetry, warfarin to be managed by pharmacy she is subtherapeutic today. #Essential thrombocytosis-analegride stopped on discharge after contact with heme/oncology, Dr. Jimenez, discharge patient with hydroxyurea 500 mg daily and close follow-up with heme/onc #Anxiety/memory issues?- Consider Mini-Mental status exam at the time of next visit in the office. She seems pretty sharp but her anxiety and her family's anxiety suggest that maybe there is more going on than we really know. #Prophylaxis-DVT with SCD/enoxaparin till INR therapeutic. GI not indicated #Disposition-full code from home. patient and family very anxious about her discharging home however they declined home health when offered. Exam Vital Signs (Last) Date Time Temp Pulse Resp B/P Pulse Ox O2 Delivery O2 Flow Rate FiO2 09/09/16 14:00 36.4 95 20 133/82 97 Room Air 09/07/16 13:44 1.00 Exam Gen.- A+ O 3 no apparent distress. Thin elderly female sitting up at bedside and ambulating Eyes- open conjunctiva clear, pupils equal nonicteric ENT- ears normal, nose normal Neck- supple/trach midline CVS- RRR no murmur or gallop, trace pedal edema Lungs CTA GI- NABS/NT soft Musc- moving 4 no obvious deformity Neuro- cranial nerves II through XII intact to gross examination, nonfocal Skin- warm and dry, no rashes/lesions/wounds noted Psych- pleasant and appropriate,very anxious Test 09/07/16 01:20 09/07/16 01:31 09/07/16 05:22 09/07/16 09:10 Magnesium Level 2.1mg/dL (1.6-2.6) Total Bilirubin 0.4mg/dL (0.0-1.2) Aspartate Amino Transf (AST/SGOT) 30U/L (0-50) Alanine Aminotransferase (ALT/SGPT) 17U/L (0-32) Alkaline Phosphatase 103U/L (25-165) Total Protein 7.1g/dL (6.4-8.4) Albumin 4.4g/dL (3.4-5.0) Lipase 70U/L (13-60) Urine Color Straw (YELLOW) Urine Appearance Hazy (CLEAR,HAZY) Urine pH 8.0 (5.0-8.0) Urine Specific [place] 1.010 (1.003-1.035) Urine Protein 30mg/dL (NEG,TRACE) Urine Glucose (UA) Negativemg/dL (NEGATIVE) Urine Ketones Negativemg/dL (NEGATIVE) Urine Occult Blood Trace (NEGATIVE) Urine Nitrite Negative (NEGATIVE) Urine Bilirubin Negative (NEGATIVE) Urine Urobilinogen Normalmg/dL (NORMAL) Urine Leukocyte Esterase Small (NEGATIVE) Urine RBC 3-10/hpf (0-2) Urine WBC >50/hpf (0-5) Urine Epithelial Cells Occasional/hpf (NONE-MOD) Urine Crystals None seen (NONE SEEN) Urine Bacteria Few/hpf (NONE-FEW) Urine Hyaline Casts None/lpf (NONE) Urine Granular Casts None seen (NONE SEEN) Urine Waxy Casts None seen (NONE SEEN) Urine Red Blood Cell Casts None seen (NONE SEEN) Urine White Blood Cell Casts None seen (NONE SEEN) Urine Mucus None seen (None Seen) Urine Trichomonas None seen (NONE SEEN) Urine Yeast Nn (NONE SEEN) Urine Culture Reflexed Indicated Hold Urine Received (Received) Lactic Acid Level 0.6mmol/L (0.4-2.0) Troponin T 0.011ug/L (0.0-0.011) Pro-B-Type Natriuretic Peptide 3442pg/mL (0-738) Procalcitonin 0.85ng/mL (0.00-0.08) Test 09/09/16 06:35 White Blood Count 5.8th/mm3 (3.8-10.1) Red Blood Count 2.82mil/mm3 (3.90-5.20) Hemoglobin 9.8g/dL (12.0-15.6) Hematocrit 30.4% (35.0-46.0) Mean Corpuscular Volume 107.8fL (81-100) Mean Corpuscular Hemoglobin 34.8pg (27.0-35.0) Mean Corpuscular Hemoglobin Concent 32.2% (32.0-37.0) Red Cell Distribution Width 13.8% (12.3-15.4) Platelet Count 348bil/L (150-400) Neutrophils (%) (Auto) 60.2% (40-74) Lymphocytes (%) (Auto) 17.0% (14-46) Monocytes (%) (Auto) 16.1% (4-12) Eosinophils (%) (Auto) 5.5% (0-5) Basophils (%) (Auto) 0.7% (0-3) Prothrombin Time 21.4sec (8.1-12.5) Prothromb Time International Ratio 1.97ratio Sodium Level 140mEq/L (134-144) Potassium Level 5.0mEq/L (3.5-5.2) Chloride Level 106mEq/L (97-108) Carbon Dioxide Level 23mmol/L (18-29) Blood Urea Nitrogen 25mg/dL (8-27) Creatinine 0.98mg/dL (0.57-1.00) Estimat Glomerular Filtration Rate 77mL/min (>59) Glucose Level 94mg/dL (60-99) Calcium Level 9.1mg/dL (8.5-10.1) Microbiology Results Urine Positive for Escherichia coli sensitive to everything besides Bactrim Discharge Medications Discharge Medications Biotin (Biotin) 1 Mg Capsule 1 MG PO DAILY (Reported) Brinzolamide/Brimonid Tart (Simbrinza 1%-0.2% Eye Drops) 8 Ml Drops.susp 1 GTT OD TID (Reported) Carvedilol (Carvedilol) 6.25 Mg Tablet 6.25 MG AD BID (Reported) Cephalexin (Keflex) 500 Mg Capsule 500 MG PO QID Prescribed by: PARESH CHAPMAN MD Cholecalciferol (Vitamin D3) (Vitamin D) 1,000 Unit Tablet 1,000 UNIT PO DAILY ( Reported) Diclofenac Gel (Voltaren Gel) 100 Gm Tube 1 APPLIC TOPICAL QID (Reported) Furosemide (Furosemide) 20 Mg Tab 20 MG PO DAILY (Reported) Hydroxyurea (Hydroxyurea) 500 Mg Capsule 500 MG PO DAILY Prescribed by: PARESH CHAPMAN MD Lactobacillus Acidophilus (Acidophilus Lactobacilli) 500 Million Cell Capsule 1 EACH PO DAILY Prescribed by: PARESH CHAPMAN MD Losartan Potassium (Losartan Potassium) 25 Mg Tablet 25 MG PO DAILY (Reported) Vit B Comp/C/FA/Iron/Vit E (Vitamin B Complex Tablet) 1 Each Tablet 1 EACH PO DAILY (Reported) Warfarin Sodium (Warfarin Sodium) 1 Mg Tablet 1-5 MG PO DIRECTED (Reported) As needed Acetaminophen (Acetaminophen) 500 Mg Tablet 500 MG PO QID PRN PRN For Pain ( Reported) Butalbital/Aspirin/Caff 50-325-40 mg (Fiorinal 50-325-40 mg) 1 Each Capsule 1 CAPSULE PO Q4H PRN PRN MIGRAINE (Reported) Lorazepam (Lorazepam) 0.5 Mg Tablet 0.5 MG PO HS PRN PRN For Insomnia (Reported ) Sumatriptan Succinate (Imitrex) 50 Mg Tablet 50 MG PO PRN For Headache (Reported ) oxyCODONE-Acetaminophen 5-325 mg (oxyCODONE-Acetaminophen 5-325 mg) 1 Each Tablet 1 TAB PO Q6H PRN PRN For Pain (Reported) Miscellaneous Medications Ca/D3/Mag#11/Zinc/Shearing Supervisor/Jamie/Bor (Caltrate 600+D Plus Tablet) 1 Each Tablet 1 EACH PO (Reported) Followup Plan Disposition: To home Follow-up plan Schedule follow-up with Tony POTTS, make a log of weight, breathing, edema and other symptomsto bring to her appointments with the Discharge Diet: Heart Healthy Patient Instructions Stop analegride, make sure you have a follow-up appointment with Dr. Jimenez, keep her cardiology appointment in primary care provider appointments Follow-up Provider: Fani Johnson MD Follow-up with PCP in: Other (5-10 days interspersed with other appointments) Provider: Carlos Jimenez MD Follow-up in: Other (call for next available) Time spent Greater than 30 minutes Attending Statement Patient needs basic metabolic panel, CBC, INR 09/13 she has been subtherapeutic on her warfarin. Please cc a copy of this to [facility] cardiology in [place] where the patient is to see Dr. Rodriguez she tells me Thursday 09/14 copies to: Carlos Jimenez MD; Fani Johnson MD, Andris E MD Sep 09, 2016 19:07
[2016-09-23] MEDS ORDERED: HYDR25SU31 RC (11:06)
[2016-09-23] MEDS ORDERED: biotin (11:06)
[2016-09-23] MEDS ORDERED: HYDROCORTISONE RECTAL (11:06)
== END 2016-09-09 17:47 | disposition home or self-care (01) | DRG 690 ==
LOC: SED 01:00 → MPC 08:06
PROVIDERS: ADMIT Hospitalist; ATTEND Hospitalist
DX: N39.0 Urinary tract infection, site not specified (principal); N17.9 Acute kidney failure, unspecified; I50.22 Chronic systolic (congestive) heart failure; D64.9 Anemia, unspecified; I48.91 Unspecified atrial fibrillation; D47.3 Essential (hemorrhagic) thrombocythemia; Z87.891 Personal history of nicotine dependence; B96.20 Unspecified Escherichia coli [E. coli] as the cause of diseases classified elsewhere